=== PATIENT | male | born 1990 | race Caucasian/White ===

== ENCOUNTER 2019-02-18 22:04 | Emergency (ER) | payer SELFPAY ==
[2019-02-18 23:38] LABS: BLOOD UREA NITROGEN,BUN 17 mg/dL (7.0-18.0); CARBON DIOXIDE,CO2 22.5 mmol/L (21.0-32.0); CHLORIDE,CL 102 mmol/L (98-107); GLUCOSE RANDOM 92 mg/dL (74-106); POTASSIUM,K 3.8 mmol/L (3.5-5.1); SODIUM,NA 140 mmol/L (136-148)
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
--- NOTE | 2019-02-18 23:54 | CR ---
Indication: Site cold. Technique: AP portable views of the chest. Comparison: None Findings: The heart is normal in size. The lungs are clear. No infiltrate, pleural effusion, or pneumothorax is identified. Impression: No acute cardiopulmonary process Dictated by Ary Light MD @ Feb 18 2019 11:52PM Signed by Dr. Ary Light @ Feb 18 2019 11:53PM
== END 2019-02-19 01:00 ==
LOC: MW.ED 22:04
DX: R45.851 Suicidal ideations (principal); F17.210 Nicotine dependence, cigarettes, uncomplicated
CPT/HCPCS: 36415; 71045; 71045-26; 80053; 80305-QW; 84443; 85025; 93005; 99285-25; G0480